=== PATIENT | male | born 1995 | race Caucasian/White ===

== ENCOUNTER 2017-10-27 17:50 | Inpatient (IN) | payer OTHER ==
[~2017-10-27] VITALS: Ht 182.9 cm; Wt 91.1 kg
[2017-10-27 18:11] VITALS: BP 116/50; PULSE 92; TEMP 100.4
[2017-10-27 19:47] VITALS: BP 124/60; PULSE 85; TEMP 98.8
[2017-10-27 20:29] LABS: MEAN CELL VOLUME 87 fl (80.0-100.0); MEAN CORPUSCULAR HGB CONC 33 g/dl (33.0-37.0); MEAN PLATELET VOLUME 8.1 fl (7.4-10.4); PLATELET COUNT 443 K/mm3 (130-400); RED BLOOD COUNT 3.94 M/mm3 (4.20-5.60); REDCELL DISTRIBUTION WIDTH-CV 11.9 % (11.5-14.5)
[2017-10-27 20:34] LABS: HEMATOCRIT 34.3 % (42.0-52.0); HEMOGLOBIN 11.4 g/dl (13.5-18.0); MEAN CORPUSCULAR HEMOGLOBIN 29 pg (27.0-31.0)
[2017-10-27 20:40] LABS: ALBUMIN 3.2 gm/dL (3.5-5.0); BILIRUBIN,TOTAL 0.4 mg/dL (0.0-1.0); CALCIUM 8.2 mg/dL (8.4-10.2); CREATININE, serum 0.92 mg/dL (0.66-1.25); POTASSIUM 3.9 mmol/L (3.4-5.0); TOTAL PROTEIN 7.2 gm/dL (6.4-8.2)
[2017-10-27 20:51] LABS: BAND 17 % (0-10); LYMPHOCYTE 9 % (20.0-51.0); NEUTROPHILS 71 % (42.0-75.2); PLATELET ESTIMATE INCREASED (NORMAL)
[2017-10-27 23:09] VITALS: BP 103/41; PULSE 90; TEMP 99.1
[2017-10-28] VITALS (13 sets, daily range): BP systolic 109–131; BP diastolic 52–68; PULSE 20–107; TEMP 98.5–101.8
[2017-10-28 06:53] LABS: MEAN CELL VOLUME 87 fl (80.0-100.0); MEAN CORPUSCULAR HGB CONC 33 g/dl (33.0-37.0); MEAN PLATELET VOLUME 8.1 fl (7.4-10.4); PLATELET COUNT 422 K/mm3 (130-400); RED BLOOD COUNT 3.86 M/mm3 (4.20-5.60); REDCELL DISTRIBUTION WIDTH-CV 12.1 % (11.5-14.5)
[2017-10-28 06:59] LABS: HEMATOCRIT 33.7 % (42.0-52.0); HEMOGLOBIN 11.2 g/dl (13.5-18.0); MEAN CORPUSCULAR HEMOGLOBIN 29 pg (27.0-31.0)
[2017-10-28 07:10] LABS: CALCIUM 8.3 mg/dL (8.4-10.2); CREATININE, serum 0.88 mg/dL (0.66-1.25); POTASSIUM 4.1 mmol/L (3.4-5.0)
[2017-10-28 08:07] LABS: BAND 5 % (0-10); LYMPHOCYTE 9 % (20.0-51.0); NEUTROPHILS 80 % (42.0-75.2); PLATELET ESTIMATE INCREASED (NORMAL); TOXIC GRANULATION PRESENT
[2017-10-28 08:08] LABS: POLYCHROMASIA 1+; STOMATOCYTE 1+; TARGET CELLS 1+
[2017-10-29 04:07] VITALS: BP 118/62; PULSE 85; TEMP 97.6
[2017-10-29 07:11] LABS: MEAN CELL VOLUME 89 fl (80.0-100.0); MEAN CORPUSCULAR HGB CONC 32 g/dl (33.0-37.0); MEAN PLATELET VOLUME 8.1 fl (7.4-10.4); PLATELET COUNT 419 K/mm3 (130-400); RED BLOOD COUNT 3.81 M/mm3 (4.20-5.60); REDCELL DISTRIBUTION WIDTH-CV 12.2 % (11.5-14.5)
[2017-10-29 07:19] LABS: HEMATOCRIT 33.9 % (42.0-52.0); MEAN CORPUSCULAR HEMOGLOBIN 29 pg (27.0-31.0)
[2017-10-29 07:32] LABS: CALCIUM 8.5 mg/dL (8.4-10.2); CREATININE, serum 0.87 mg/dL (0.66-1.25); POTASSIUM 4.3 mmol/L (3.4-5.0)
[2017-10-29 07:33] VITALS: BP 126/69; PULSE 85; TEMP 99.1
[2017-10-29 09:05] LABS: HIV 1/2 Antibodies Non-Reactive; HIV-1p24 Antigen Non-Reactive
[2017-10-29 09:07] LABS: BAND 8 % (0-10); EOSINOPHIL 1 % (0-4); LYMPHOCYTE 13 % (20.0-51.0); NEUTROPHILS 72 % (42.0-75.2); PLATELET ESTIMATE INCREASED (NORMAL)
[2017-10-29 13:17] VITALS: BP 125/66; PULSE 83; TEMP 98.7
[2017-10-29 17:16] VITALS: BP 137/66; PULSE 89; TEMP 98.2
[2017-10-29 19:44] VITALS: BP 145/84; PULSE 102; TEMP 98.2
[2017-10-30] VITALS (7 sets, daily range): BP systolic 115–136; BP diastolic 54–77; PULSE 72–104; TEMP 98.3–99.1
[2017-10-30 06:45] LABS: HEMATOCRIT 35.9 % (42.0-52.0); HEMOGLOBIN 11.6 g/dl (13.5-18.0); MEAN CELL VOLUME 90 fl (80.0-100.0); MEAN CORPUSCULAR HEMOGLOBIN 29 pg (27.0-31.0); MEAN CORPUSCULAR HGB CONC 32 g/dl (33.0-37.0); PLATELET COUNT 491 K/mm3 (130-400); RED BLOOD COUNT 4.01 M/mm3 (4.20-5.60); REDCELL DISTRIBUTION WIDTH-CV 12.3 % (11.5-14.5)
[2017-10-30 06:51] LABS: ALBUMIN 3.2 gm/dL (3.5-5.0); BILIRUBIN,TOTAL 0.3 mg/dL (0.0-1.0); CALCIUM 8.8 mg/dL (8.4-10.2); CREATININE, serum 0.88 mg/dL (0.66-1.25); POTASSIUM 4.3 mmol/L (3.4-5.0); TOTAL PROTEIN 7.2 gm/dL (6.4-8.2)
[2017-10-30 07:25] LABS: BAND 6 % (0-10); EOSINOPHIL 1 % (0-4); HYPOCHROMIA 1+; LYMPHOCYTE 20 % (20.0-51.0); METAMYELOCYTE 1 % (0-0); NEUTROPHILS 67 % (42.0-75.2); PLATELET ESTIMATE INCREASED (NORMAL)
[2017-10-31 00:50] VITALS: BP 127/71; PULSE 86; TEMP 99.2
[2017-10-31 06:38] LABS: MEAN CELL VOLUME 89 fl (80.0-100.0); MEAN CORPUSCULAR HGB CONC 32 g/dl (33.0-37.0); PLATELET COUNT 556 K/mm3 (130-400); RED BLOOD COUNT 3.87 M/mm3 (4.20-5.60); REDCELL DISTRIBUTION WIDTH-CV 12.2 % (11.5-14.5)
[2017-10-31 06:40] LABS: HEMATOCRIT 34.5 % (42.0-52.0); HEMOGLOBIN 11.1 g/dl (13.5-18.0); MEAN CORPUSCULAR HEMOGLOBIN 29 pg (27.0-31.0)
[2017-10-31 07:05] LABS: CALCIUM 8.9 mg/dL (8.4-10.2); CREATININE, serum 0.8 mg/dL (0.66-1.25); POTASSIUM 4.3 mmol/L (3.4-5.0)
[2017-10-31 07:33] VITALS: BP 120/64; PULSE 84; TEMP 98.9
[2017-10-31 07:42] LABS: BAND 6 % (0-10); LYMPHOCYTE 14 % (20.0-51.0); METAMYELOCYTE 1 % (0-0); NEUTROPHILS 77 % (42.0-75.2); PLATELET ESTIMATE INCREASED (NORMAL)
[2017-10-31 07:43] LABS: HYPOCHROMIA 1+
[2017-10-31 10:59] VITALS: BP 126/71; PULSE 100; TEMP 98.3
[2017-10-31 16:02] VITALS: BP 153/69; PULSE 111; TEMP 98.3
[2017-10-31 21:05] VITALS: BP 130/60; PULSE 99; TEMP 97.7
[2017-10-31 23:22] VITALS: BP 113/59; PULSE 82; TEMP 98
[2017-11-01] VITALS (9 sets, daily range): BP systolic 107–119; BP diastolic 52–67; PULSE 68–89; TEMP 97.7–98.4
[2017-11-01 08:05] LABS: MEAN CELL VOLUME 89 fl (80.0-100.0); MEAN CORPUSCULAR HGB CONC 32 g/dl (33.0-37.0); MEAN PLATELET VOLUME 7.9 fl (7.4-10.4); RED BLOOD COUNT 4.07 M/mm3 (4.20-5.60); REDCELL DISTRIBUTION WIDTH-CV 12.2 % (11.5-14.5)
[2017-11-01 08:08] LABS: HEMATOCRIT 36.1 % (42.0-52.0); HEMOGLOBIN 11.6 g/dl (13.5-18.0); MEAN CORPUSCULAR HEMOGLOBIN 29 pg (27.0-31.0); PLATELET COUNT 440 K/mm3 (130-400)
[2017-11-01 08:12] LABS: CALCIUM 9.1 mg/dL (8.4-10.2); CREATININE, serum 0.69 mg/dL (0.66-1.25); POTASSIUM 4.6 mmol/L (3.4-5.0)
[2017-11-01 08:16] LABS: BAND 1 % (0-10); BASOPHIL 1 % (0-2); EOSINOPHIL 3 % (0-4); LYMPHOCYTE 18 % (20.0-51.0); MYELOCYTE 2 % (0-0); NEUTROPHILS 73 % (42.0-75.2); PLATELET ESTIMATE INCREASED (NORMAL)
[2017-11-01] MEDS ORDERED: ALBUTEROL0.83 MG/ML IH (09:08)
[2017-11-01] MEDS ORDERED: COREG 25MG25 MG/TAB PO (09:09)
[2017-11-01] MEDS ORDERED: LIPITOR 80MG80 MG PO (09:09)
[2017-11-01] MEDS ORDERED: ZYLOPRIM 100MG100 MG PO (09:09)
[2017-11-01] MEDS ORDERED: DELSYM30 MG/5 ML PO (09:10)
[2017-11-01] MEDS ORDERED: LASIX 20MG TABL20 MG PO (09:10)
[2017-11-01] MEDS ORDERED: RT ADVAIR 228 DISKUS IH (09:10)
[2017-11-01] MEDS ORDERED: NEURONTIN300 MG/CAP PO (09:11)
[2017-11-01] MEDS ORDERED: GLUCOTROL 5M5 MG/TAB PO (09:12)
[2017-11-01] MEDS ORDERED: PRINIVIL40 MG PO (09:12)
[2017-11-01] MEDS ORDERED: JANUVIA50 MG PO (09:12)
[2017-11-01] MEDS ORDERED: GLUCOPHAGE1000 MG PO (09:13)
[2017-11-01] MEDS ORDERED: OXY IR5 MG PO (09:15)
[2017-11-01] MEDS ORDERED: PROTONIX20 MG PO (09:15)
[2017-11-01] MEDS ORDERED: K-DUR20 MEQ PO (09:16)
[2017-11-01] MEDS ORDERED: ZANTAC 150MG T150 MG PO (09:18)
[2017-11-02 04:12] VITALS: BP 115/60; PULSE 95; TEMP 97.7
[2017-11-02 08:08] VITALS: BP 117/63; PULSE 74; TEMP 97.7
[2017-11-02 12:43] VITALS: BP 110/60; PULSE 81; TEMP 98.7
[2017-11-02 15:40] VITALS: BP 109/53; PULSE 88; TEMP 98
[2017-11-02 16:00] VITALS: BP 109/53; PULSE 88; TEMP 98
== END 2017-11-02 17:41 | disposition short-term general hospital (02) | DRG 871 ==
LOC: MEDICAL 17:50
PROVIDERS: Family Medicine; Nurse Practitioner Family; Physician Assistant; Surgery
PROC: 0W9930Z Drainage of Right Pleural Cavity with Drainage Device, Percutaneous Approach (ICD-10-PCS; principal; 2017-10-28 10:30)
PROC: 02HV33Z Insertion of Infusion Device into Superior Vena Cava, Percutaneous Approach (ICD-10-PCS; 2017-10-31)
PROC: 0BPQX0Z Removal of Drainage Device from Pleura, External Approach (ICD-10-PCS; 2017-11-01)
PROC: 0W9930Z Drainage of Right Pleural Cavity with Drainage Device, Percutaneous Approach (ICD-10-PCS; 2017-11-01)
DX: A41.9 Sepsis, unspecified organism (principal); J18.9 Pneumonia, unspecified organism; J86.9 Pyothorax without fistula; J93.9 Pneumothorax, unspecified; J90 Pleural effusion, not elsewhere classified; R19.7 Diarrhea, unspecified
CPT/HCPCS: 99223-AI; 99231-AI; 99232-AI; 99239; A7048; C1751; C1894; J0692; J1644; J1650; J1885; J1956; J2185; J2250; J2405; J2704; J2765; J3010; J3370; J7030; J7040; J7050; Q9967

== ENCOUNTER → 2017-11-11 | Outpatient (CLI) | payer OTHER ==
[~2017-11-11] MED LIST: ALBUTEROL0.83 MG/ML IH; COREG 25MG25 MG/TAB PO; DELSYM30 MG/5 ML PO; GLUCOPHAGE1000 MG PO; GLUCOTROL 5M5 MG/TAB PO; JANUVIA50 MG PO; K-DUR20 MEQ PO; LASIX 20MG TABL20 MG PO; LIPITOR 80MG80 MG PO; NEURONTIN300 MG/CAP PO; OXY IR5 MG PO; PRINIVIL40 MG PO; PROTONIX20 MG PO; RT ADVAIR 228 DISKUS IH; ZANTAC 150MG T150 MG PO; ZYLOPRIM 100MG100 MG PO
== END ==
LOC: COL.LAB 18:59
DX: J18.9 Pneumonia, unspecified organism (principal); Z79.2 Long term (current) use of antibiotics

== ENCOUNTER → 2017-11-14 | Outpatient (CLI) | payer OTHER ==
[2017-11-14 18:36] LABS: MEAN CELL VOLUME 87 fl (80.0-100.0); MEAN CORPUSCULAR HGB CONC 33 g/dl (33.0-37.0); MEAN PLATELET VOLUME 8.7 fl (7.4-10.4); PLATELET COUNT 233 K/mm3 (130-400); RED BLOOD COUNT 4.06 M/mm3 (4.20-5.60); REDCELL DISTRIBUTION WIDTH-CV 12.4 % (11.5-14.5)
[2017-11-14 18:41] LABS: HEMATOCRIT 35.4 % (42.0-52.0); HEMOGLOBIN 11.6 g/dl (13.5-18.0); MEAN CORPUSCULAR HEMOGLOBIN 29 pg (27.0-31.0)
[2017-11-14 18:42] LABS: ALBUMIN 3.4 gm/dL (3.5-5.0); BILIRUBIN,TOTAL 0.2 mg/dL (0.0-1.0); CALCIUM 8.6 mg/dL (8.4-10.2); CREATININE, serum 0.79 mg/dL (0.66-1.25); TOTAL PROTEIN 7.1 gm/dL (6.4-8.2)
[2017-11-14 18:47] LABS: VANCOMYCIN TROUGH 9.73 ug/mL (7.00-20.00)
[2017-11-15 09:08] LABS: BASO # 0.1 (0.0-0.2); BASO % 2.3 % (0.0-2.0); EOS # 0.4 (0.0-0.7); EOS % 9.4 % (0-4.0); GRAN # 1.8 (1.4-6.5); GRAN % 38.1 % (42.2-75.2); LYMPH # 1.9 (1.2-3.4); MONO # 0.5 (0.1-0.6)
== END ==
LOC: ZCOL.LAB 18:29
DX: J18.9 Pneumonia, unspecified organism (principal); Z79.2 Long term (current) use of antibiotics

== ENCOUNTER → 2017-11-22 | Outpatient (CLI) | payer OTHER ==
[2017-11-22 19:46] LABS: BASO # 0.1 (0.0-0.2); BASO % 1.4 % (0.0-2.0); EOS # 0.3 (0.0-0.7); EOS % 4.3 % (0-4.0); GRAN # 2.9 (1.4-6.5); GRAN % 46.3 % (42.2-75.2); HEMATOCRIT 37.2 % (42.0-52.0); HEMOGLOBIN 12.3 g/dl (13.5-18.0); LYMPH # 2.3 (1.2-3.4); LYMPH % 37.2 % (20.0-51.0); MEAN CELL VOLUME 86 fl (80.0-100.0); MEAN CORPUSCULAR HEMOGLOBIN 28 pg (27.0-31.0); MEAN CORPUSCULAR HGB CONC 33 g/dl (33.0-37.0); MEAN PLATELET VOLUME 9.4 fl (7.4-10.4); MONO # 0.7 (0.1-0.6); MONO % 10.5 % (1.7-9.3); PLATELET COUNT 234 K/mm3 (130-400); RED BLOOD COUNT 4.35 M/mm3 (4.20-5.60); REDCELL DISTRIBUTION WIDTH-CV 12.7 % (11.5-14.5)
[2017-11-22 20:07] LABS: ALBUMIN 3.7 gm/dL (3.5-5.0); BILIRUBIN,TOTAL 0.3 mg/dL (0.0-1.0); CALCIUM 8.8 mg/dL (8.4-10.2); CREATININE, serum 0.96 mg/dL (0.66-1.25); TOTAL PROTEIN 7.6 gm/dL (6.4-8.2)
[2017-11-22 20:12] LABS: VANCOMYCIN TROUGH 12.55 ug/mL (7.00-20.00)
== END ==
LOC: ZCOL.LAB 19:36
DX: J18.9 Pneumonia, unspecified organism (principal); Z79.2 Long term (current) use of antibiotics

== ENCOUNTER → 2017-11-28 | Outpatient (CLI) | payer OTHER ==
[2017-11-28 19:40] LABS: BASO # 0.1 (0.0-0.2); BASO % 1.4 % (0.0-2.0); EOS # 0.3 (0.0-0.7); EOS % 4.4 % (0-4.0); GRAN # 2.8 (1.4-6.5); HEMATOCRIT 38.5 % (42.0-52.0); HEMOGLOBIN 12.9 g/dl (13.5-18.0); LYMPH % 34.2 % (20.0-51.0); MEAN CELL VOLUME 85 fl (80.0-100.0); MEAN CORPUSCULAR HEMOGLOBIN 28 pg (27.0-31.0); MEAN CORPUSCULAR HGB CONC 34 g/dl (33.0-37.0); MEAN PLATELET VOLUME 9.2 fl (7.4-10.4); MONO # 0.7 (0.1-0.6); MONO % 11.8 % (1.7-9.3); PLATELET COUNT 203 K/mm3 (130-400); RED BLOOD COUNT 4.55 M/mm3 (4.20-5.60); REDCELL DISTRIBUTION WIDTH-CV 12.8 % (11.5-14.5)
[2017-11-28 19:45] LABS: ALBUMIN 3.7 gm/dL (3.5-5.0); BILIRUBIN,TOTAL 0.4 mg/dL (0.0-1.0); CREATININE, serum 1.08 mg/dL (0.66-1.25); POTASSIUM 4.2 mmol/L (3.4-5.0); TOTAL PROTEIN 7.4 gm/dL (6.4-8.2)
[2017-11-28 19:50] LABS: VANCOMYCIN TROUGH 13.19 ug/mL (7.00-20.00)
== END ==
LOC: ZCOL.LAB 19:30
DX: J18.9 Pneumonia, unspecified organism (principal); Z79.2 Long term (current) use of antibiotics